=== PATIENT | male | born 1945 | race Caucasian/White ===

== ENCOUNTER 2023-06-15 14:56 | Inpatient (IN) | payer MEDICARE, OTHER ==
[~2023-06-15] VITALS: Ht 165.1 cm; Wt 71.2 kg
[2023-06-15] MEDS: IV NORMAL SALINE 1000 ML BAG IV ONE ×2 (15:42→17:24)
[2023-06-15] MEDS: VANCOMYCIN IV 1,000 MG in IV DEXTROSE 5% 250 ML IV ONE (15:45)
[2023-06-15] MEDS ORDERED: CEFEPIME HCL 1 G VIAL ONE (15:50)
[2023-06-15] MEDS ORDERED: VANCOMYCIN IV 200 ML ONE (15:50)
[2023-06-15] MEDS: CEFEPIME HCL 1 G in IV DEXTROSE 5% 50 ML IV ONE (16:02)
[2023-06-15] MEDS ORDERED: AMIODARONE HCL 150 MG/3 ML VIAL IV ONE (16:07)
[2023-06-15] MEDS ORDERED: SODIUM BICARBONATE 8.4% 50 MEQ/50 ML DISP.SYRIN IV ONE (16:07)
[2023-06-15] MEDS ORDERED: CALCIUM CHLORIDE 1 GM/10 ML DISP.SYRIN IVP ONE (16:07)
[2023-06-15 16:11] LABS: BASOPHILS % (AUTO) 0.1 % (0.0-2.0); DIFFERENTIAL COMMENT 0; EOSINOPHILS % (AUTO) 0.1 % (0.0-7.0); HEMATOCRIT 34.5 % (36.7-47.1); HEMOGLOBIN 11.3 g/dL (12.5-16.3); LYMPHOCYTES # (AUTO) 1.2 K/uL (0.8-4.8); LYMPHOCYTES % (AUTO) 5.4 % (20.5-51.5); MEAN CORPUSCULAR HEMOGLOBIN 29.5 uug (23.8-33.4); MEAN CORPUSCULAR HGB CONC 33 g/dL (32.5-36.3); MONOCYTES # (AUTO) 1.8 K/uL (0.1-1.30); MONOCYTES % (AUTO) 8.2 % (0.0-11.0); NEUTROPHILS # (AUTO) 18.5 K/uL (1.8-8.9); NEUTROPHILS % (AUTO) 86.2 % (38.5-71.5); PLATELET COUNT (AUTO) 377 K/uL (152-348); RED BLOOD CELL COUNT(AUTO) 3.83 MIL/uL (4.06-5.63); RED CELL DISTRIBUTION WIDTH 15.1 % (12.1-16.2); WHITE BLOOD COUNT (AUTO) 21.5 K/uL (3.6-10.2)
[2023-06-15] MEDS: CALCIUM CHLORIDE 1 GM/10 ML DISP.SYRIN IVP ONE (16:12)
[2023-06-15] MEDS: AMIODARONE HCL IV 150 MG in IV DEXTROSE 5% 100 ML IV ONE (16:12)
[2023-06-15] MEDS: SODIUM BICARBONATE 8.4% 50 MEQ/50 ML DISP.SYRIN IV ONE (16:21)
[2023-06-15 16:27] LABS: ALANINE AMINOTRANSFERASE 172 U/L (16-63); ALBUMIN 2.8 g/dL (3.4-5.0); ALKALINE PHOSPHATASE 249 U/L (50-136); ASPARTATE AMINOTRANSFERASE 80 U/L (15-37); BILIRUBIN,DIRECT 0.2 mg/dL (0.0-0.2); BILIRUBIN,TOTAL 0.5 mg/dL (0.2-1.0); CALCIUM 8.3 mg/dL (8.5-10.1); CARBON DIOXIDE 22 mmol/L (21-32); CHLORIDE 122 mmol/L (98-107); CREATININE 3.9 mg/dL (0.6-1.3); GLUCOSE 112 mg/dL (74-106); POTASSIUM 4.7 mmol/L (3.5-5.1); TOTAL PROTEIN, SERUM 6.6 g/dL (6.4-8.2)
[2023-06-15 16:46] LABS: UREA NITROGEN, BLOOD 212 mg/dL (7-18)
[2023-06-15 16:47] LABS: SODIUM SERUM 164 mmol/L (136-145)
[2023-06-15 16:54] LABS: NT-PRO BNP 49307 pg/mL (0-125)
[2023-06-15] MEDS: AMIODARONE HCL IV 450 MG in IV DEXTROSE 5% 250 ML IV PRN (16:56)
[2023-06-15] MEDS: AMIODARONE HCL IV 900 MG in IV DEXTROSE 5% 500 ML IV ONE (16:57)
[2023-06-15 17:16] LABS: BAND % (MANUAL) 0 % (0-10); LYMPHOCYTES % (MANUAL) 8 % (20-40); NEUTROPHILS % (MANUAL) 85 % (42-75)
[2023-06-15 17:17] LABS: BASOPHILS % (MANUAL) 0 % (0-2); EOSINOPHILS % (MANUAL) 0 % (0-8); MONOCYTES % (MANUAL) 7 % (2-10)
[2023-06-15] MEDS ORDERED: MAGNESIUM HYDROXIDE 30 ML LIQUID UDC PO PRN (17:30)
[2023-06-15] MEDS ORDERED: ACETAMINOPHEN 325 MG TABLET PO PRN (17:30)
[2023-06-15] MEDS ORDERED: REMEDY ESSENTIAL ZINC PASTE 113 GM TP PRN (17:30)
[2023-06-15] MEDS ORDERED: ONDANSETRON 4 MG/2 ML VIAL IV PRN (17:30)
[2023-06-15] MEDS ORDERED: HYDR10SY16 PO (17:58)
[2023-06-15] MEDS ORDERED: ALBU18HF2 INH (17:58)
[2023-06-15] MEDS ORDERED: AMLO-212 PO (17:58)
[2023-06-15] MEDS ORDERED: MAGN400C PO (17:58)
[2023-06-15] MEDS ORDERED: CHOL200010 PO (17:58)
[2023-06-15] MEDS ORDERED: BISA10SU61 RC (17:58)
[2023-06-15] MEDS ORDERED: ACET-3117 PO (17:58)
[2023-06-15] MEDS ORDERED: CYAN10006 PO (17:58)
[2023-06-15] MEDS ORDERED: MAGN400O6 PO (17:58)
[2023-06-15] MEDS ORDERED: IPRA3AMP22 IH (17:58)
[2023-06-15] MEDS ORDERED: MULT-594 PO (17:58)
[2023-06-15] MEDS ORDERED: QUET25TA PO (17:58)
[2023-06-15] MEDS ORDERED: LORA0.5T48 PO (17:58)
[2023-06-15] MEDS ORDERED: MIRT-121 PO (17:58)
[2023-06-15] MEDS ORDERED: DONE5TAB34 PO (17:58)
[2023-06-15] MEDS ORDERED: FLUT16SP16 BNOSTRILS (17:58)
[2023-06-15] MEDS ORDERED: AMIN30LI2 PO (17:58)
[2023-06-15] MEDS ORDERED: ATOR20TA PO (17:58)
[2023-06-15] MEDS ORDERED: LISI20TA30 PO (17:58)
[2023-06-15] MEDS ORDERED: DIVA250T4 PO (17:58)
[2023-06-15] MEDS ORDERED: NA P133E RC (17:58)
[2023-06-15] MEDS ORDERED: CHOL200026 PO (17:58)
[2023-06-15] MEDS ORDERED: THIA100T68 PO (17:58)
[2023-06-15] MEDS ORDERED: SERT25TA PO (17:58)
[2023-06-15 18:15] LABS: HIV-1 p24 ANTIGEN NON REACTIVE (NONREACTIVE); HIV-1/2 ANTIBODY NON REACTIVE (NONREACTIVE)
[2023-06-15 19:00] VITALS: BP 92/67; O2SAT 94
[2023-06-15] MEDS: ASPIRIN 300 MG RECTAL SUPP RC ONE (19:00)
[2023-06-15 20:00] VITALS: BP 98/61; TEMP 97.5; O2SAT 97
[2023-06-15] MEDS ORDERED: HEPARIN SODIUM,PORCINE 5,000 UNITS/ML VIAL ONE (20:55)
[2023-06-15] MEDS ORDERED: HEPARIN/D5W DRIP 500 ML ONE (20:55)
[2023-06-15 21:00] VITALS: BP 94/69; O2SAT 96
[2023-06-15] MEDS: HEPARIN SODIUM,PORCINE 5,000 UNITS/ML VIAL IV ONE (21:00)
[2023-06-15] MEDS: IV D5 1/2 NS 1000 ML 1,000 ML IV SCH (21:03)
[2023-06-15 21:21] VITALS: O2SAT 98
[2023-06-15 22:00] VITALS: BP 103/80; O2SAT 96
[2023-06-15] MEDS: HEPARIN/D5W DRIP 500 ML IV PRN (22:38)
[2023-06-15 23:00] VITALS: BP 120/66; O2SAT 96
[2023-06-16] VITALS (31 sets, daily range): BP systolic 59–151; BP diastolic 30–132; TEMP 96.5–98; O2SAT 90–98
[2023-06-16] MEDS ORDERED: NOREPINEPHRINE BITARTRATE 4 MG/4 ML VIAL IV ONE (03:30)
[2023-06-16] MEDS: NOREPINEPHRINE BITARTRATE 8 MG in IV NORMAL SALINE 242 ML IV PRN ×2 (04:03→10:28)
[2023-06-16] MEDS: OLANZAPINE 10 MG VIAL IM PRN (04:20)
[2023-06-16 04:53] LABS: BASOPHILS % (AUTO) 0.2 % (0.0-2.0); HEMATOCRIT 29.5 % (36.7-47.1); HEMOGLOBIN 9.6 g/dL (12.5-16.3); LYMPHOCYTES # (AUTO) 0.9 K/uL (0.8-4.8); LYMPHOCYTES % (AUTO) 4.8 % (20.5-51.5); MEAN CORPUSCULAR HEMOGLOBIN 29.8 uug (23.8-33.4); MEAN CORPUSCULAR HGB CONC 33 g/dL (32.5-36.3); MEAN CORPUSCULAR VOLUME 91.5 fL (73.0-96.2); MONOCYTES # (AUTO) 1.5 K/uL (0.1-1.30); MONOCYTES % (AUTO) 7.7 % (0.0-11.0); NEUTROPHILS # (AUTO) 17.1 K/uL (1.8-8.9); NEUTROPHILS % (AUTO) 87.3 % (38.5-71.5); PLATELET COUNT (AUTO) 327 K/uL (152-348); RED BLOOD CELL COUNT(AUTO) 3.22 MIL/uL (4.06-5.63); RED CELL DISTRIBUTION WIDTH 14.9 % (12.1-16.2); WHITE BLOOD COUNT (AUTO) 19.5 K/uL (3.6-10.2)
[2023-06-16 05:09] LABS: DIFFERENTIAL COMMENT 1
[2023-06-16 05:25] LABS: CALCIUM 7.5 mg/dL (8.5-10.1); CARBON DIOXIDE 21 mmol/L (21-32); CHLORIDE 123 mmol/L (98-107); CREATININE 3.5 mg/dL (0.6-1.3); GLUCOSE 169 mg/dL (74-106); MAGNESIUM 3.1 mg/dL (1.8-2.4); PHOSPHOROUS 7.8 mg/dL (2.5-4.9); POTASSIUM 4.8 mmol/L (3.5-5.1)
[2023-06-16 05:30] LABS: SODIUM SERUM 159 mmol/L (136-145)
[2023-06-16] MEDS ORDERED: NOREPINEPHRINE BITARTRATE 8 MG in IV NORMAL SALINE 242 ML IV PRN (05:30)
[2023-06-16 05:41] LABS: UREA NITROGEN, BLOOD 200 mg/dL (7-18)
[2023-06-16] MEDS ORDERED: OLANZAPINE 10 MG VIAL IM PRN (05:45)
[2023-06-16] MEDS: VANCOMYCIN IV 500 MG in IV DEXTROSE 5% 100 ML IV ONE (08:31)
[2023-06-16] MEDS ORDERED: CEFEPIME HCL 1 G in IV DEXTROSE 5% 50 ML IV SCH (09:00)
[2023-06-16] MEDS: CEFEPIME HCL 2 GM in IV DEXTROSE 5% 100 ML IV SCH (09:13)
[2023-06-16 10:02] LABS: ABG BASE EXCESS -10.2 mmol/L (-2.0-2.0); ABG HCO3 15.4 mmol/L (22.0-26.0); ABG PCO2 33.3 mmHg (35.0-48.0); ABG PH 7.284 (7.340-7.440); ABG PO2 53.6 mmHg (75.0-100.0); ABG SITE LEFT RADIAL; ABG TOTAL HEMOGLOBIN 11.8 G/dL (14.0-18.0); AaDO2 84.4 mmHg; COHb 0.2 % (0.0-3.9); MetHb 0.4 % (0.0-1.5); O2Hb 78.4 % (94.0-97.0)
[2023-06-16] MEDS: HEPARIN/D5W DRIP 500 ML IV PRN (10:16)
[2023-06-16] MEDS: AMIODARONE HCL IV 450 MG in IV DEXTROSE 5% 250 ML IV PRN (10:19)
[2023-06-16 12:46] LABS: ABG BASE EXCESS -10.7 mmol/L (-2.0-2.0); ABG HCO3 15.1 mmol/L (22.0-26.0); ABG PCO2 33.4 mmHg (35.0-48.0); ABG PH 7.273 (7.340-7.440); ABG PO2 80.8 mmHg (75.0-100.0); ABG SITE RIGHT FEMORAL; ABG TOTAL HEMOGLOBIN 11.4 G/dL (14.0-18.0); AaDO2 94.6 mmHg; COHb 0.3 % (0.0-3.9); MetHb 0.2 % (0.0-1.5); O2Hb 91.9 % (94.0-97.0)
[2023-06-16 13:09] LABS: HEPATITIS B CORE AB, TOTAL Negative (Negative); HEPATITIS B SURFACE AG Negative (Negative)
[2023-06-16] MEDS ORDERED: CHOL100062 PO (13:10)
[2023-06-16] MEDS ORDERED: CYAN-51 PO (13:12)
[2023-06-16] MEDS ORDERED: FLUT12AE5 IH (13:14)
[2023-06-16] MEDS ORDERED: HYDR10TA37 PO (13:18)
[2023-06-16] MEDS ORDERED: LORA-259 PO (13:25)
[2023-06-16] MEDS: IV D5 1/2 NS 1000 ML 1,000 ML IV PRN (14:54)
[2023-06-17] VITALS (92 sets, daily range): BP systolic 35–155; BP diastolic 14–141; TEMP 97.2–98.3; O2SAT 92–99
[2023-06-17 05:08] LABS: BASOPHILS # (AUTO) 0.1 K/UL (0.0-0.2); BASOPHILS % (AUTO) 0.3 % (0.0-2.0); EOSINOPHILS # (AUTO) 0.2 K/uL (0.0-0.7); EOSINOPHILS % (AUTO) 1.1 % (0.0-7.0); HEMATOCRIT 35.1 % (36.7-47.1); HEMOGLOBIN 11.2 g/dL (12.5-16.3); LYMPHOCYTES # (AUTO) 1.8 K/uL (0.8-4.8); LYMPHOCYTES % (AUTO) 9.2 % (20.5-51.5); MEAN CORPUSCULAR HEMOGLOBIN 29.5 uug (23.8-33.4); MEAN CORPUSCULAR HGB CONC 32 g/dL (32.5-36.3); MONOCYTES # (AUTO) 1.5 K/uL (0.1-1.30); MONOCYTES % (AUTO) 7.7 % (0.0-11.0); NEUTROPHILS # (AUTO) 16.2 K/uL (1.8-8.9); NEUTROPHILS % (AUTO) 81.7 % (38.5-71.5); PLATELET COUNT (AUTO) 332 K/uL (152-348); RED BLOOD CELL COUNT(AUTO) 3.82 MIL/uL (4.06-5.63); RED CELL DISTRIBUTION WIDTH 15.2 % (12.1-16.2); WHITE BLOOD COUNT (AUTO) 19.9 K/uL (3.6-10.2)
[2023-06-17 05:13] LABS: DIFFERENTIAL COMMENT 1
[2023-06-17 05:30] LABS: ALANINE AMINOTRANSFERASE 1548 U/L (16-63); ALBUMIN 2.4 g/dL (3.4-5.0); ALKALINE PHOSPHATASE 305 U/L (50-136); ASPARTATE AMINOTRANSFERASE 1769 U/L (15-37); BILIRUBIN,TOTAL 0.7 mg/dL (0.2-1.0); CARBON DIOXIDE 16 mmol/L (21-32); CHLORIDE 120 mmol/L (98-107); CREATINE KINASE, TOTAL 638 U/L (39-308); CREATININE 3.8 mg/dL (0.6-1.3); GLUCOSE 144 mg/dL (74-106); MAGNESIUM 2.9 mg/dL (1.8-2.4); PHOSPHOROUS 7.1 mg/dL (2.5-4.9); POTASSIUM 5.1 mmol/L (3.5-5.1); SODIUM SERUM 155 mmol/L (136-145); TOTAL PROTEIN, SERUM 5.8 g/dL (6.4-8.2); VANCOMYCIN,RANDOM 15.6 ug/mL (20.0-30.0)
[2023-06-17 06:02] LABS: ABG HCO3 13.7 mmol/L (22.0-26.0); ABG PCO2 30.8 mmHg (35.0-48.0); ABG PH 7.267 (7.340-7.440); ABG PO2 90.7 mmHg (75.0-100.0); ABG SITE LEFT RADIAL; ABG TOTAL HEMOGLOBIN 11.2 G/dL (14.0-18.0); COHb 0.3 % (0.0-3.9); MetHb 0.4 % (0.0-1.5); O2Hb 93.9 % (94.0-97.0)
[2023-06-17 06:03] LABS: UREA NITROGEN, BLOOD 193 mg/dL (7-18)
[2023-06-17] MEDS: NOREPINEPHRINE BITARTRATE 32 MG in IV NORMAL SALINE 218 ML IV PRN (07:55)
[2023-06-17] MEDS ORDERED: MISCELLANEOUS MED XX PRN (09:00)
[2023-06-17] MEDS: ALBUMIN HUMAN 25% 100 ML IV PRN (09:39)
[2023-06-17] MEDS ORDERED: PHENYLEPHRINE IV 100 MG in IV NORMAL SALINE 240 ML IV PRN (10:00)
[2023-06-17] MEDS: PHENYLEPHRINE IV 100 MG in IV NORMAL SALINE 240 ML IV PRN (10:44)
[2023-06-17] MEDS: VANCOMYCIN IV 500 MG in IV DEXTROSE 5% 100 ML IV ONE (12:00)
[2023-06-17] MEDS: PANTOPRAZOLE SODIUM 40 MG VIAL IV SCH (13:54)
[2023-06-17] MEDS: CEFEPIME HCL 1 G in IV DEXTROSE 5% 50 ML IV SCH (21:14)
[2023-06-18] VITALS (72 sets, daily range): BP systolic 20–146; BP diastolic 14–113; TEMP 97.4–99.4; O2SAT 10–99
[2023-06-18 05:00] LABS: BASOPHILS % (AUTO) 0.2 % (0.0-2.0); EOSINOPHILS # (AUTO) 0.3 K/uL (0.0-0.7); EOSINOPHILS % (AUTO) 1.1 % (0.0-7.0); HEMATOCRIT 33.4 % (36.7-47.1); HEMOGLOBIN 10.7 g/dL (12.5-16.3); LYMPHOCYTES # (AUTO) 1.8 K/uL (0.8-4.8); LYMPHOCYTES % (AUTO) 8.3 % (20.5-51.5); MEAN CORPUSCULAR HEMOGLOBIN 29.6 uug (23.8-33.4); MEAN CORPUSCULAR HGB CONC 32 g/dL (32.5-36.3); MEAN CORPUSCULAR VOLUME 92.1 fL (73.0-96.2); MONOCYTES # (AUTO) 1.4 K/uL (0.1-1.30); MONOCYTES % (AUTO) 6.5 % (0.0-11.0); NEUTROPHILS # (AUTO) 18.6 K/uL (1.8-8.9); NEUTROPHILS % (AUTO) 83.9 % (38.5-71.5); PLATELET COUNT (AUTO) 229 K/uL (152-348); RED BLOOD CELL COUNT(AUTO) 3.62 MIL/uL (4.06-5.63); RED CELL DISTRIBUTION WIDTH 15.2 % (12.1-16.2); WHITE BLOOD COUNT (AUTO) 22.1 K/uL (3.6-10.2)
[2023-06-18 05:16] LABS: DIFFERENTIAL COMMENT 1
[2023-06-18 05:36] LABS: ALANINE AMINOTRANSFERASE 2072 U/L (16-63); ALBUMIN 2.7 g/dL (3.4-5.0); ALKALINE PHOSPHATASE 434 U/L (50-136); ASPARTATE AMINOTRANSFERASE 1955 U/L (15-37); BILIRUBIN,DIRECT 0.9 mg/dL (0.0-0.2); BILIRUBIN,TOTAL 1.5 mg/dL (0.2-1.0); CARBON DIOXIDE 20 mmol/L (21-32); CHLORIDE 110 mmol/L (98-107); CREATINE KINASE, TOTAL 1242 U/L (39-308); CREATININE 3.5 mg/dL (0.6-1.3); GLUCOSE 114 mg/dL (74-106); MAGNESIUM 2.3 mg/dL (1.8-2.4); PHOSPHOROUS 7.2 mg/dL (2.5-4.9); POTASSIUM 4.7 mmol/L (3.5-5.1); SODIUM SERUM 147 mmol/L (136-145); TOTAL PROTEIN, SERUM 5.7 g/dL (6.4-8.2)
[2023-06-18 05:44] LABS: UREA NITROGEN, BLOOD 125 mg/dL (7-18)
[2023-06-18 06:31] LABS: ABG BASE EXCESS -8.1 mmol/L (-2.0-2.0); ABG HCO3 14.7 mmol/L (22.0-26.0); ABG PCO2 22.9 mmHg (35.0-48.0); ABG PH 7.426 (7.340-7.440); ABG PO2 90.7 mmHg (75.0-100.0); ABG SITE LEFT RADIAL; ABG TOTAL HEMOGLOBIN 10.5 G/dL (14.0-18.0); AaDO2 97.3 mmHg; COHb 0.3 % (0.0-3.9); MetHb 0.3 % (0.0-1.5); O2Hb 95.4 % (94.0-97.0)
[2023-06-18] MEDS ORDERED: VANCOMYCIN IV 500 MG in IV DEXTROSE 5% 100 ML IV PRN (09:00)
[2023-06-18] MEDS: HALOPERIDOL LACTATE 5 MG/1 ML VIAL IM ONE (09:06)
[2023-06-18] MEDS ORDERED: LORAZEPAM 2 MG/1 ML VIAL IV PRN (09:30)
[2023-06-18] MEDS: AMIODARONE HCL IV 450 MG in IV DEXTROSE 5% 250 ML IV PRN (09:44)
[2023-06-18] MEDS: LORAZEPAM 2 MG/1 ML VIAL IV PRN (09:52)
[2023-06-18 11:08] LABS: A/G RATIO 0.8 (0.7-1.7); ALBUMIN 2.3 g/dL (2.9-4.4); ALPHA-1-GLOBULIN 0.4 g/dL (0.0-0.4); ALPHA-2-GLOBULIN 0.9 g/dL (0.4-1.0); BETA GLOBULIN 0.6 g/dL (0.7-1.3); GAMMA GLOBULIN 1.2 g/dL (0.4-1.8); M-SPIKE 0.6 g/dL (Not Observed)
[2023-06-18] MEDS: VASOPRESSIN 20 UNIT in IV NORMAL SALINE 40 ML IV PRN (11:15)
[2023-06-18 15:29] LABS: ABG HCO3 15.4 mmol/L (22.0-26.0); ABG PCO2 28.5 mmHg (35.0-48.0); ABG PH 7.351 (7.340-7.440); ABG PO2 87.3 mmHg (75.0-100.0); ABG SITE LEFT RADIAL; ABG TOTAL HEMOGLOBIN 10.4 G/dL (14.0-18.0); AaDO2 96.4 mmHg; COHb 0.3 % (0.0-3.9); MetHb 0.3 % (0.0-1.5); O2Hb 94.3 % (94.0-97.0)
[2023-06-18] MEDS: VANCOMYCIN IV 500 MG in IV DEXTROSE 5% 100 ML IV ONE (16:25)
[2023-06-18] MEDS: LEVALBUTEROL HCL NEB 0.63 MG/3 ML NEBU NEB PRN (17:22)
[2023-06-18] MEDS: IPRATROPIUM BROMIDE 0.5 MG/2.5 ML NEBU NEB PRN (17:22)
== END 2023-06-18 23:00 | DRG 871 ==
LOC: ER 14:56 → CCU 21:00
PROVIDERS: ADMIT Internal Medicine; ATTEND Internal Medicine
PROC: 06HY33Z Insertion of Infusion Device into Lower Vein, Percutaneous Approach (ICD-10-PCS; principal; 2023-06-16)
PROC: 05HA33Z Insertion of Infusion Device into Left Brachial Vein, Percutaneous Approach (ICD-10-PCS; 2023-06-16)
PROC: 5A09457 Assistance with Respiratory Ventilation, 24-96 Consecutive Hours, Continuous Positive Airway Pressure (ICD-10-PCS; 2023-06-16)
PROC: 5A1D70Z Performance of Urinary Filtration, Intermittent, Less than 6 Hours Per Day (ICD-10-PCS; 2023-06-17)
DX: A41.9 Sepsis, unspecified organism (principal); G93.41 Metabolic encephalopathy; R65.21 Severe sepsis with septic shock; N17.0 Acute kidney failure with tubular necrosis; K72.00 Acute and subacute hepatic failure without coma; R53.2 Functional quadriplegia; J96.01 Acute respiratory failure with hypoxia; I50.21 Acute systolic (congestive) heart failure; I21.A1 Myocardial infarction type 2; E87.0 Hyperosmolality and hypernatremia; I47.19 Other supraventricular tachycardia; E44.0 Moderate protein-calorie malnutrition; N39.0 Urinary tract infection, site not specified; D64.9 Anemia, unspecified; R57.1 Hypovolemic shock; Z66 Do not resuscitate; E86.1 Hypovolemia; F43.10 Post-traumatic stress disorder, unspecified; F20.9 Schizophrenia, unspecified; Z88.6 Allergy status to analgesic agent; Z79.899 Other long term (current) drug therapy; R13.10 Dysphagia, unspecified; I27.20 Pulmonary hypertension, unspecified; I44.7 Left bundle-branch block, unspecified; I48.91 Unspecified atrial fibrillation; I11.0 Hypertensive heart disease with heart failure; I07.1 Rheumatic tricuspid insufficiency; J44.9 Chronic obstructive pulmonary disease, unspecified; Z68.26 Body mass index [BMI] 26.0-26.9, adult; E88.09 Other disorders of plasma-protein metabolism, not elsewhere classified; F03.90 Unspecified dementia, unspecified severity, without behavioral disturbance, psychotic disturbance, mood disturbance, and anxiety; R91.8 Other nonspecific abnormal finding of lung field
CPT/HCPCS: 36415; 36600; 70030-TC; 70450; 71045; 82803; 83605; 83735; 83970; 84100; 84155; 84165; 84443; 84484; 85025; 85730; 86704; 86850; 86900; 86901; 87040; 87340; 87806; 90937; 93005; 93307; 94660; 94760; A4606; A4663; A6209; C9113; G0378; J0282; J0692; J1630; J1644; J2060; J2358; J3370; J3490; J3590; J7040; J7050; J7060; J7614; P9047